=== PATIENT | female | born 1960 | race Asian ===

== ENCOUNTER 2016-10-18 13:05 | Emergency (ER) | payer SELFPAY ==
[~2016-10-18] VITALS: Ht 157.5 cm; Wt 86.2 kg
[2016-10-18 14:09] VITALS: BP 160/95
--- NOTE | 2016-10-18 14:43 | RAD ---
2 view CXR: Clinical indications: Cough. Comparison: December 31, 2014. Findings: There is a left upper lobe lung nodule which is unchanged consistent with a nodular scar or granuloma. No acute lung infiltrate or pleural effusion or pulmonary edema or lung mass or pneumothorax is seen. The heart size is at the upper limits of normal. The pulmonary vasculature, mediastinum and both jill are unremarkable. The osseous structures appear intact. Impression: No acute radiographic abnormality is seen.
--- NOTE | 2016-10-18 14:56 | PHYS DOC ---
Past Medical History Past Medical History: No Pertinent History Past Surgical History: Hysterectomy Alcohol Use: None Drug Use: None Adult General Chief Complaint Chief Complaint: COUGH HPI HPI Patient is a 56 year old female presents to the emergency department with a history of cough and congestion. Patient denies fever, chills, nausea or vomiting. Patient has been taking ibuprofen for discomfort. She also c/o left knee pain for the last month in which she has taken ibuprofen with no relief. She denies having a PCP. Review of Systems Review of Systems Constitutional: Denies fever or chills [] Eyes: Denies change in visual acuity, redness, or eye pain [] HENT: nasal congestion denies sore throat [] Respiratory: cough denies shortness of breath [] Cardiovascular: No additional information not addressed in HPI [] GI: Denies abdominal pain, nausea, vomiting, bloody stools or diarrhea [] : Denies dysuria or hematuria [] Musculoskeletal: Denies back pain. C/o left knee pain Integument: Denies rash or skin lesions [] Neurologic: Denies headache, focal weakness or sensory changes [] Allergies Allergies Allergies Coded Allergies Type Severity Reaction Last Updated Verified No Known Drug Allergies 12/30/14 No Physical Exam Physical Exam Constitutional: Well developed, well nourished, no acute distress, non-toxic appearance. [] HENT: Normocephalic, atraumatic, bilateral external ears normal, oropharynx moist, no oral exudates, nose normal. Bilateral TM normal. Throat with no erythematous no postnasal drip noted. Eyes: PERRLA, EOMI, conjunctiva normal, no discharge. [] Neck: Normal range of motion, no tenderness, supple, no stridor. [] Cardiovascular:Heart rate regular rhythm, no murmur [] Lungs & Thorax: Bilateral breath sounds clear to auscultation [] Skin: Warm, dry, no erythema, no rash. [] Back: No tenderness Extremities: Left knee tenderness, no cyanosis, no clubbing, ROM intact, no edema. Negative Lachmans, negative vargus and negative valgus Neurologic: Alert and oriented X 3, normal motor function, normal sensory function, no focal deficits noted. [] Psychologic: Affect normal, judgement normal, mood normal. [] Current Patient Data Vital Signs Vital Signs Date Time Temp Pulse Resp B/P Pulse Ox O2 Delivery O2 Flow Rate FiO2 10/18/16 14:09 98.2 81 22 94 Room Air 98.2 Lab Values Laboratory Tests Test 10/18/16 14:55 Influenza Type A Antigen Negative (NEGATIVE) Influenza Type B Antigen Negative (NEGATIVE) EKG EKG [] Radiology/Procedures Radiology/Procedures [facility] [address] [place] [address] IMAGING REPORT Signed PATIENT: CHAYITO ISABEL ACCOUNT: [id number] : 1960 LOCATION: ER AGE: 56 SEX: F EXAM STATUS: REG ER ORD. PHYSICIAN: NON,STAFF REASON: cough PROCEDURE: CHEST PA & LATERAL 2 view CXR: Clinical indications: Cough. Comparison: December 31, 2014. Findings: There is a left upper lobe lung nodule which is unchanged consistent with a nodular scar or granuloma. No acute lung infiltrate or pleural effusion or pulmonary edema or lung mass or pneumothorax is seen. The heart size is at the upper limits of normal. The pulmonary vasculature, mediastinum and both jill are unremarkable. The osseous structures appear intact. Impression: No acute radiographic abnormality is seen. DICTATED and SIGNED BY: SALOME CAMILO MD DATE: 10/18/16 1436 CC: NO PCP; NON,STAFF ~ [] Course & Med Decision Making Course & Med Decision Making Pertinent Labs and Imaging studies reviewed. (See chart for details) Influenza A and B was negative. Chest x-ray was negative for any infiltrates or pneumonia as. We'll recommend patient to take Mucinex DM [id number]. Also recommended Tylenol or ibuprofen for pain and discomfort. Also recommended patient to follow up to primary care physician in regards to left knee pain and discomfort been going on for over a month. Patient agrees with discharge instructions treatment regimens and follow-up recommendations. Also recommended plenty of fluids. Patient will be discharged home. Signs and symptoms to return back to emergency department as been provided. [] Dragon Disclaimer Dragon Disclaimer This electronic medical record was generated, in whole or in part, using a voice recognition dictation system. Departure Departure Impression: Primary Impression: Viral infection Disposition: HOME, SELF-CARE Condition: STABLE Referrals: NO PCP (PCP) Patient Instructions: Viral Infections, [id number] Additional Instructions: Home to rest Medication as prescribed. Mucinex DM [id number] as prescribed by [employer]. Ice packs to your knee on 20 minutes off 20 minutes several times a day elevation as much as possible. Follow-up with her primary care physician within the next week. Return back to emergency prior signs symptoms of become worse. MARCEL GONZALEZ NP Oct 18, 2016 14:56
[2016-10-18 15:46] LABS: OBC FLU VALID
== END 2016-10-18 16:02 | disposition home or self-care (01) ==
LOC: ER 13:05
DX: B34.9 Viral infection, unspecified (principal); R05 Cough; R09.81 Nasal congestion; M25.562 Pain in left knee
CPT/HCPCS: 71020; 87804; 99285-25

== ENCOUNTER 2016-12-03 23:45 | Emergency (ER) | payer SELFPAY ==
[~2016-12-03] VITALS: Ht 165.1 cm; Wt 86.2 kg
[2016-12-03 23:52] VITALS: BP 159/113
[2016-12-04] MEDS ORDERED: PRED50TA PO (00:01)
[2016-12-04] MEDS ORDERED: PROAIR HFA8.5 GM INH (00:01)
[2016-12-04] MEDS ORDERED: D-ME118S2 PO (00:01)
--- NOTE | 2016-12-04 00:01 | PHYS DOC ---
Past Medical History Past Medical History: No Pertinent History Past Surgical History: Hysterectomy Alcohol Use: None Drug Use: None Adult General Chief Complaint Chief Complaint: COUGH HPI HPI Patient is a 56 year old female who presents emergency Department with complaint of nonproductive cough for approximately 4-5 days. She denies any fevers and chills. Patient is a nonsmoker. She denies history of heart disease. She states she suspects that she may have some type of lung disease such as asthma. She denies antibiotic use, hospitalization or foreign travel within the past 90 days. Review of Systems Review of Systems Constitutional: Denies fever or chills [] Eyes: Denies change in visual acuity, redness, or eye pain [] HENT: Denies nasal congestion or sore throat [] Respiratory: Denies cough or shortness of breath [] Cardiovascular: No additional information not addressed in HPI [] GI: Denies abdominal pain, nausea, vomiting, bloody stools or diarrhea [] : Denies dysuria or hematuria [] Musculoskeletal: Denies back pain or joint pain [] Integument: Denies rash or skin lesions [] Neurologic: Denies headache, focal weakness or sensory changes [] Endocrine: Denies polyuria or polydipsia [] Current Medications Current Medications Current Medications Medications (Trade) Dose Ordered Sig/Jackie Start Time Stop Time Status Last Admin Dose Admin Albuterol/ Ipratropium (Duoneb) 3 ml 1X ONCE 12/04/16 00:15 12/04/16 00:16 DC 12/04/16 00:13 3 ML Prednisone (Prednisone) 50 mg 1X ONCE 12/04/16 00:15 12/04/16 00:16 DC 12/04/16 00:28 50 MG Allergies Allergies Allergies Coded Allergies Type Severity Reaction Last Updated Verified No Known Drug Allergies 12/30/14 No Physical Exam Physical Exam Constitutional: Well developed, well nourished, no acute distress, non-toxic appearance. [] HENT: Normocephalic, atraumatic, bilateral external ears normal, oropharynx moist, no oral exudates, nose normal. [] Eyes: PERRLA, EOMI, conjunctiva normal, no discharge. [] Neck: Normal range of motion, no tenderness, supple, no stridor. [] Cardiovascular:Heart rate regular rhythm, no murmur Lungs & Thorax: There is no evidence of respiratory distress or respiratory fatigue. Patient demonstrates a harsh, bronchitic cough. There is no sensory muscle use or posturing. Patient has diffuse end expiratory wheezing throughout all lung clements. Abdomen: Bowel sounds normal, soft, no tenderness, no masses, no pulsatile masses. [] Skin: Warm, dry, no erythema, no rash. [] Back: No tenderness, no CVA tenderness. [] Extremities: No tenderness, no cyanosis, no clubbing, ROM intact, no edema. [] Neurologic: Alert and oriented X 3, normal motor function, normal sensory function, no focal deficits noted. [] Psychologic: Affect normal, judgement normal, mood normal. [] Current Patient Data Vital Signs Vital Signs Date Time Temp Pulse Resp B/P Pulse Ox O2 Delivery O2 Flow Rate FiO2 12/04/16 00:15 94 Room Air 12/03/16 23:52 98.3 94 22 98.3 EKG EKG [] Radiology/Procedures Radiology/Procedures [] Course & Med Decision Making Course & Med Decision Making Pertinent Labs and Imaging studies reviewed. (See chart for details) [] Dragon Disclaimer Dragon Disclaimer This electronic medical record was generated, in whole or in part, using a voice recognition dictation system. Departure Departure Impression: Primary Impression: Asthma Disposition: 01 HOME, SELF-CARE Condition: IMPROVED Referrals: NO PCP (PCP) Patient Instructions: Asthma Prevention-Brief, Asthma, Adult, [id number] Additional Instructions: 1. Take the medication as prescribed. There is no need for antibiotics. 2. You need to follow-up with a primary care doctor to discuss further management of your asthma. 3. Review the discharge instructions provided for self-care reasons to return to the emergency department. Scripts D-Methorphan Hb/Prometh Hcl (Promethazine-Dm Syrup)118 Ml Syrup5 Ml PO PRN Q4HRS COUGH #120 ML Prov:ROYAL MATIAS 12/04/16 Albuterol Sulfate (Proair Hfa Inhaler)8.5 Gm Hfa.aer.ad1 Puff INH PRN Q6HRS PRN SHORTNESS OF BREATH #1 INHALER Ref 0 Prov:ROYAL MATIAS 12/04/16 Prednisone 50 Mg Tablet1 Tab PO DAILY #5 TAB Prov:ROYAL MATIAS 12/04/16 ROYAL MATIAS Dec 04, 2016 00:01
[2016-12-04] MEDS ORDERED: IPRATRPIUM/ALBUTEROL 0.5/2.5MG 3 ML NEBU. NEB ONE (00:15)
[2016-12-04] MEDS ORDERED: PREDNISONE 10 MG TABLET PO ONE (00:15)
== END 2016-12-04 00:31 | disposition home or self-care (01) ==
LOC: ER 23:45
DX: J45.909 Unspecified asthma, uncomplicated (principal)
CPT/HCPCS: 94640; 99283; J7512; J7620

== ENCOUNTER 2017-12-30 19:37 | Emergency (ER) | payer SELFPAY ==
[2017-12-30 21:04] LABS: BILIRUBIN,URINE SMALL (NEG); CLARITY,URINE CLEAR; GLUCOSE,URINE 500 mg/dL (NEG); NITRITE,URINE NEGATIVE (NEG); PROTEIN,URINE NEGATIVE (NEG-TRACE)
[2017-12-30] MEDS: IPRATRPIUM/ALBUTEROL 0.5/2.5MG 3 ML NEBU. NEB (21:11)
[2017-12-30 21:14] LABS: COLOR,URINE DK YELLOW
[2017-12-30 21:16] LABS: BACTERIA,URINE MODERATE /HPF (0-FEW); RBC,URINE RARE /HPF (0-2); SQUAMOUS EPITHELIAL CELL,UR MANY /LPF; YEAST,URINE PRESENT /HPF
[2017-12-30] MEDS: ONDANSETRON ODT 4 MG TAB.RAPDIS. PO (21:30)
== END 2017-12-30 21:50 | disposition home or self-care (01) ==
LOC: ER 19:37
DX: N39.0 Urinary tract infection, site not specified (principal); R81 Glycosuria
CPT/HCPCS: 81001; 87086; 94640; 99284-25; J7620; Q0162

== ENCOUNTER 2019-02-02 12:17 | Emergency (ER) | payer SELFPAY ==
[~2019-02-02] VITALS: Ht 154.9 cm; Wt 82.3 kg
[~2019-02-02 12:17] MED LIST: ALBU2.5V8 INH; D-ME118S2 PO; PRED50TA PO; SULF1TAB24 PO
[2019-02-02] MEDS ORDERED: IPRATRPIUM/ALBUTEROL 0.5/2.5MG 3 ML NEBU. NEB ONE (12:45)
[2019-02-02] MEDS ORDERED: IV NORMAL SALINE 1000ML BAG 1,000 ML IV SCH (12:56)
[2019-02-02] MEDS ORDERED: INSULIN REGULAR 100 UNIT/ML 3ML VIAL. IV ONE (13:00)
--- NOTE | 2019-02-02 13:06 | PHYS DOC ---
Past Medical History Past Medical History: No Pertinent History Past Surgical History: No Surgical History, Hysterectomy Alcohol Use: None Drug Use: None Adult General Chief Complaint Chief Complaint: COUGH HPI HPI Patient is a 58 year old non-Citizen Of [place] speaking female who presents with complaining of cough and vaginal itching. History was taking through translating service line. Patient complaining of vaginal itching and discharge for 1 month with urinary burning. Patient also complaining of cough and congestion and shortness of breath for 2 weeks with productive cough and chest soreness during episodes of cough. Patient denies fever and chills sick contact, nausea and vomiting, abdominal pain, smoking. Patient is a poor historian. She denies any medical problem. Review of Systems Review of Systems Constitutional: Denies fever or chills [] Eyes: Denies change in visual acuity, redness, or eye pain [] HENT: Denies nasal congestion or sore throat [] Respiratory: Reports cough and shortness of breath Cardiovascular: No additional information not addressed in HPI [] GI: Denies abdominal pain, nausea, vomiting, bloody stools or diarrhea [] : Reports dysuria, denies hematuria [] Musculoskeletal: Denies back pain or joint pain [] Integument: Denies rash or skin lesions [] Neurologic: Denies headache, focal weakness or sensory changes [] Endocrine: Denies polyuria or polydipsia [] All other systems were reviewed and found to be within normal limits, except as documented in this note. Current Medications Current Medications Current Medications Medications (Trade) Dose Ordered Sig/Jackie Start Time Stop Time Status Last Admin Dose Admin Albuterol/ Ipratropium (Duoneb) 3 ml 1X ONCE 02/02/19 12:45 02/02/19 12:49 DC 02/02/19 12:56 3 ML Insulin Human Regular (HumuLIN R VIAL) 10 unit 1X ONCE 02/02/19 13:00 02/02/19 13:01 DC 02/02/19 13:22 10 UNIT Sodium Chloride 1,000 ml @ 1,000 mls/hr Q1H 02/02/19 12:56 02/02/19 13:55 DC 02/02/19 13:19 1,000 MLS/HR Allergies Allergies Allergies Coded Allergies Type Severity Reaction Last Updated Verified No Known Drug Allergies 12/30/14 No Physical Exam Physical Exam Constitutional: Well nourished, no acute distress, non-toxic appearance. [] HENT: Normocephalic, atraumatic, bilateral external ears normal, oropharynx moist, no oral exudates, nose normal. [] Eyes: PERRLA, EOMI, conjunctiva normal, no discharge. [] Neck: Normal range of motion, no tenderness, supple, no stridor. [] Cardiovascular:Heart rate regular rhythm, no murmur [] Lungs & Thorax: Bilateral breath sounds clear to auscultation [] Abdomen: Bowel sounds normal, soft, no tenderness, no masses, no pulsatile masses. [] Skin: Warm, dry, no erythema, no rash. [] Back: No tenderness, no CVA tenderness. [] Extremities: No tenderness, no cyanosis, no clubbing, ROM intact, no edema. [] Neurologic: Alert and oriented X 3, normal motor function, normal sensory function, no focal deficits noted. [] Current Patient Data Vital Signs Vital Signs Date Time Temp Pulse Resp B/P (MAP) Pulse Ox O2 Delivery O2 Flow Rate FiO2 02/02/19 13:24 110 20 152/88 (109) 95 Room Air 02/02/19 12:30 98.5 98.5 Lab Values Laboratory Tests Test 02/02/19 12:54 02/02/19 13:10 02/02/19 13:15 02/02/19 13:41 Glucose (Fingerstick) 338 mg/dL (70-99) H 256 mg/dL (70-99) H White Blood Count 9.2 x10^3/uL (4.0-11.0) Red Blood Count 5.48 x10^6/uL (3.50-5.40) H Hemoglobin 16.0 g/dL (12.0-15.5) H Hematocrit 47.0 % (36.0-47.0) Mean Corpuscular Volume 86 fL (79-100) Mean Corpuscular Hemoglobin 29 pg (25-35) Mean Corpuscular Hemoglobin Concent 34 g/dL (31-37) Red Cell Distribution Width 13.3 % (11.5-14.5) Platelet Count 120 x10^3/uL (140-400) L Neutrophils (%) (Auto) 52 % (31-73) Lymphocytes (%) (Auto) 39 % (24-48) Monocytes (%) (Auto) 6 % (0-9) Eosinophils (%) (Auto) 2 % (0-3) Basophils (%) (Auto) 1 % (0-3) Neutrophils # (Auto) 4.8 x10^3uL (1.8-7.7) Lymphocytes # (Auto) 3.6 x10^3/uL (1.0-4.8) Monocytes # (Auto) 0.5 x10^3/uL (0.0-1.1) Eosinophils # (Auto) 0.2 x10^3/uL (0.0-0.7) Basophils # (Auto) 0.1 x10^3/uL (0.0-0.2) Sodium Level 136 mmol/L (136-145) Potassium Level 3.9 mmol/L (3.5-5.1) Chloride Level 101 mmol/L (98-107) Carbon Dioxide Level 29 mmol/L (21-32) Anion Gap 6 (6-14) Blood Urea Nitrogen 14 mg/dL (7-20) Creatinine 0.8 mg/dL (0.6-1.0) Estimated GFR (Cockcroft-Gault) 74.2 BUN/Creatinine Ratio 18 (6-20) Glucose Level 351 mg/dL (70-99) H Calcium Level 8.7 mg/dL (8.5-10.1) Total Bilirubin 0.5 mg/dL (0.2-1.0) Aspartate Amino Transferase (AST) 18 U/L (15-37) Alanine Aminotransferase (ALT) 26 U/L (14-59) Alkaline Phosphatase 129 U/L (46-116) H Total Protein 8.0 g/dL (6.4-8.2) Albumin 3.2 g/dL (3.4-5.0) L Albumin/Globulin Ratio 0.7 (1.0-1.7) L Urine Collection Type Unknown Urine Color Yellow Urine Clarity Clear Urine pH 6.0 Urine Specific Loyal >=1.030 Urine Protein Negative mg/dL (NEG-TRACE) Urine Glucose (UA) >=1000 mg/dL (NEG) Urine Ketones (Stick) Negative mg/dL (NEG) Urine Blood Negative (NEG) Urine Nitrite Negative (NEG) Urine Bilirubin Negative (NEG) Urine Urobilinogen Dipstick 1.0 mg/dL (0.2 mg/dL) Urine Leukocyte Esterase Negative (NEG) Urine RBC 1-2 /HPF (0-2) Urine WBC 1-4 /HPF (0-4) Urine Squamous Epithelial Cells Few /LPF Urine Bacteria 0 /HPF (0-FEW) Urine Yeast Present /HPF Laboratory Tests 02/02/19 13:10 Laboratory Tests 02/02/19 13:10 EKG EKG [] Radiology/Procedures Radiology/Procedures [facility] [address] [place] [address] IMAGING REPORT Signed PATIENT: CHAYITO ISABEL ACCOUNT: [id number] : 1960 LOCATION: ER AGE: 58 SEX: F EXAM STATUS: REG ER ORD. PHYSICIAN: DANIELLE BALBUENA MD REASON: cough PROCEDURE: CHEST PA & LATERAL PA and lateral chest radiographs 02/02/2019 CLINICAL HISTORY: Cough. PA and lateral digital radiographs of the chest were obtained. Comparison study is dated 10/18/2016. The cardiac silhouette is mildly enlarged. The thoracic aorta is tortuous. Small calcified granulomas are seen involving both lungs. No acute pulmonary infiltrate is seen. No pleural effusion or pneumothorax is noted. Degenerative changes are seen involving the thoracic spine. IMPRESSION: No acute abnormality is seen. Electronically signed by: Mauri Jensen MD (02/02/2019 1:14 PM) [facility] DICTATED and SIGNED BY: MAURI JENSEN MD DATE: 02/02/19 1933 Course & Med Decision Making Course & Med Decision Making Pertinent Labs and Imaging studies reviewed. (See chart for details) Evaluation of patient in ER showed 58-year-old female patient with complaining of cough and congestion for 2 weeks and vaginal discharge and dysuria for one month. Patient denied any medical problem. Had blood sugar of T8 and T8 and as stated she was diagnosed with diabetes mellitus several years ago but doesn't take any medication. Chest x-ray was unremarkable. Blood sugar gradually decreased to less than 300. Patient was informed about test result and needs to follow-up with her primary care physician. Prescription for metformin 500 mg twice a day was given. Dragon Disclaimer Dragon Disclaimer This electronic medical record was generated, in whole or in part, using a voice recognition dictation system. Departure Departure Impression: Primary Impression: Acute bronchitis Additional Impression: Diabetes mellitus type II, uncontrolled Disposition: 01 HOME, SELF-CARE (at 1410) Condition: IMPROVED Referrals: NO PCP (PCP) Patient Instructions: 1800 Calorie Diet for Diabetes Meal Planning, Acute Bronchitis, Diabetes Meal Planning Guide, Hyperglycemia Additional Instructions: Drink plenty of liquids Follow-up with your primary care physician in 2-3 days Return to ER if not getting better Scripts Benzonatate (TESSALON PERLE) 100 Mg Capsule 1 CAP PO TID for cough, #21 CAP Prov: DANIELLE BALBUENA MD 02/02/19 Albuterol Sulfate (PROAIR HFA INHALER) 8.5 Gm Hfa.aer.ad 2 PUFF INH PRN Q6HRS PRN for SHORTNESS OF BREATH, #1 INHALER 0 Refills Prov: DANIELLE BALBUENA MD 02/02/19 Azithromycin (ZITHROMAX) 250 Mg Tablet 1 PKG PO UD for infection, #1 PKG Prov: DANIELLE BALBUENA MD 02/02/19 Metformin Hcl (METFORMIN HCL) 500 Mg Tablet 500 MG PO BIDWMEALS for ANTI-DIABETIC, #60 TAB 0 Refills Prov: DANIELLE BALBUENA MD 02/02/19 Problem Qualifiers Primary Impression: Acute bronchitis Bronchitis organism: unspecified organism Qualified Codes: J20.9 - Acute bronchitis, unspecified Additional Impression: Diabetes mellitus type II, uncontrolled Glycemic state: with hyperglycemia Qualified Codes: E11.65 - Type 2 diabetes mellitus with hyperglycemia DANIELLE BALBUENA MD February 02, 2019 13:06
--- NOTE | 2019-02-02 13:17 | RAD ---
PA and lateral chest radiographs 02/02/2019 CLINICAL HISTORY: Cough. PA and lateral digital radiographs of the chest were obtained. Comparison study is dated 10/18/2016. The cardiac silhouette is mildly enlarged. The thoracic aorta is tortuous. Small calcified granulomas are seen involving both lungs. No acute pulmonary infiltrate is seen. No pleural effusion or pneumothorax is noted. Degenerative changes are seen involving the thoracic spine. IMPRESSION: No acute abnormality is seen. Electronically signed by: Mauri Jensen MD (02/02/2019 1:14 PM) [facility]
[2019-02-02 13:23] LABS: BASO # 0.1 x10^3/uL (0.0-0.2); BASO % 1 % (0-3); EOS # 0.2 x10^3/uL (0.0-0.7); EOS % 2 % (0-3); LYMPH # 3.6 x10^3/uL (1.0-4.8); LYMPH % 39 % (24-48); MEAN CORPUSCULAR HEMOGLOBIN 29 pg (25-35); MEAN CORPUSCULAR HGB CONC 34 g/dL (31-37); MEAN CORPUSCULAR VOLUME 86 fL (79-100); MONO # 0.5 x10^3/uL (0.0-1.1); MONO % 6 % (0-9); NEUT # 4.8 x10^3uL (1.8-7.7); NEUT % 52 % (31-73); PLATELET COUNT 120 x10^3/uL (140-400); RED BLOOD COUNT 5.48 x10^6/uL (3.50-5.40); RED CELL DISTRIBUTION WIDTH 13.3 % (11.5-14.5); WHITE BLOOD COUNT 9.2 x10^3/uL (4.0-11.0)
[2019-02-02 13:24] VITALS: BP 152/88
[2019-02-02 13:37] LABS: BILIRUBIN,URINE NEGATIVE (NEG); CLARITY,URINE CLEAR; COLOR,URINE YELLOW; NITRITE,URINE NEGATIVE (NEG); PROTEIN,URINE NEGATIVE (NEG-TRACE)
[2019-02-02 13:43] LABS: CALCIUM 8.7 mg/dL (8.5-10.1); CREATININE 0.8 mg/dL (0.6-1.0); GFR 74.2; POTASSIUM 3.9 mmol/L (3.5-5.1)
[2019-02-02 13:49] LABS: ALBUMIN 3.2 g/dL (3.4-5.0); ALBUMIN/GLOBULIN RATIO 0.7 (1.0-1.7); TOTAL BILIRUBIN 0.5 mg/dL (0.2-1.0)
[2019-02-02 14:05] LABS: BACTERIA,URINE 0 /HPF (0-FEW); SQUAMOUS EPITHELIAL CELL,UR FEW /LPF; YEAST,URINE PRESENT /HPF
[2019-02-02] MEDS ORDERED: ALBU2.5V8 INH (14:33)
[2019-02-02] MEDS ORDERED: BENZ100C PO (14:33)
[2019-02-02] MEDS ORDERED: METF500T16 PO (14:33)
[2019-02-02] MEDS ORDERED: AZIT250T PO (14:33)
== END 2019-02-02 15:05 | disposition home or self-care (01) ==
LOC: ER 12:17
DX: J20.9 Acute bronchitis, unspecified (principal); E11.65 Type 2 diabetes mellitus with hyperglycemia; L29.8 Other pruritus; Z90.710 Acquired absence of both cervix and uterus
CPT/HCPCS: 36415; 71046; 80053; 81001; 82962; 85025; 94640; 96374; 99285; J1815; J7030; J7620